=== PATIENT | female | born 1990 | race African-American/Black ===

== ENCOUNTER 2017-07-14 10:51 | Emergency (ER) | payer SELFPAY ==
[~2017-07-14] VITALS: Ht 172.7 cm; Wt 99.8 kg
[~2017-07-14 10:51] MED LIST: HYDR15SO4 PO; METR500T PO; NITR100C62 PO
[2017-07-14 11:22] VITALS: BP 118/80
[2017-07-14] MEDS ORDERED: SULF1TAB24 PO (11:52)
[2017-07-14] MEDS ORDERED: CEPH500C PO (11:52)
--- NOTE | 2017-07-14 11:52 | PHYS DOC ---
Past Medical History Past Medical History: Asthma, Hypertension Additional Past Medical Histor: SEASONAL ALLERGIES Past Surgical History: No Surgical History Alcohol Use: None Drug Use: None Adult General Chief Complaint Chief Complaint: INSECT BITE HPI HPI Patient is a 27 year old female presents the ED complaining of insect bite to face 2 days. Patient states she thinks she was bitten by an insect. No insect seen or bite felt. Patient states she woke up with a pimple to her right lower chin. States he tried to pop it. Minimal drainage. Describes pain as sharp. Rates the pain as 4 out of 10. Denies tooth pain, nausea/vomiting, fever, weakness, chest pain, shortness of breath or difficulty swallowing. Review of Systems Review of Systems Constitutional: Denies fever or chills [] Eyes: Denies change in visual acuity, redness, or eye pain [] HENT: Denies nasal congestion or sore throat [] Respiratory: Denies cough or shortness of breath [] Cardiovascular: No additional information not addressed in HPI [] GI: Denies abdominal pain, nausea, vomiting, bloody stools or diarrhea [] : Denies dysuria or hematuria [] Musculoskeletal: Denies back pain or joint pain [] Integument: Denies rash or skin lesions [] Neurologic: Denies headache, focal weakness or sensory changes [] Endocrine: Denies polyuria or polydipsia [] All other systems were reviewed and found to be within normal limits, except as documented in this note. Allergies Allergies Allergies Coded Allergies Type Severity Reaction Last Updated Verified No Known Drug Allergies 09/21/15 No Physical Exam Physical Exam Constitutional: Well developed, well nourished, no acute distress, non-toxic appearance. [] HENT: Normocephalic, atraumatic, bilateral external ears normal, oropharynx moist, no oral exudates, nose normal. [] Eyes: PERRLA, EOMI, conjunctiva normal, no discharge. [] Skin: Warm, dry, MILD ERYTHEMA SURROUNDING OPEN PIMPLE TO RIGHT CHIN. OPEN AND DRAINING. NO ABSCESS OR FLUCTUANCE.[] Neurologic: Alert and oriented X 3, normal motor function, normal sensory function, no focal deficits noted. [] Psychologic: Affect normal, judgement normal, mood normal. [] Current Patient Data Vital Signs Vital Signs Date Time Temp Pulse Resp B/P (MAP) Pulse Ox O2 Delivery O2 Flow Rate FiO2 12/9/17 11:22 98.2 75 18 99 Room Air 98.2 EKG EKG [] Radiology/Procedures Radiology/Procedures [] Course & Med Decision Making Course & Med Decision Making Pertinent Labs and Imaging studies reviewed. (See chart for details) Discussed warm compress treatment. No abscess or fluctuance. Will treat with short course of keflex and bactrim. Discussed follow-up in 3 days for re- evaluation. Discussed reasons to return to the ED. Patient understands and agrees with plan. Dragon Disclaimer Dragon Disclaimer This electronic medical record was generated, in whole or in part, using a voice recognition dictation system. Departure Departure Impression: Primary Impression: Cellulitis Disposition: 01 HOME, SELF-CARE Condition: STABLE Referrals: Lyn JACOBSON MD (PCP) Patient Instructions: Cellulitis Scripts Cephalexin (CEPHALEXIN) 500 Mg Capsule 1 CAP PO TID, #21 CAP Prov: JUAN ALBERTO SMITH 07/14/17 Sulfamethoxazole/Trimethoprim (BACTRIM DS TABLET) 1 Each Tablet 1 TAB PO BID, #14 TAB Prov: JUAN ALBERTO SMITH 07/14/17 JUAN ALBERTO SMITH Jul 14, 2017 11:52
== END 2017-07-14 12:04 | disposition home or self-care (01) ==
LOC: ER 10:51
DX: L03.211 Cellulitis of face (principal); J45.909 Unspecified asthma, uncomplicated; I10 Essential (primary) hypertension
CPT/HCPCS: 99283

== ENCOUNTER 2018-09-09 14:23 | Emergency (ER) | payer SELFPAY ==
[~2018-09-09] VITALS: Ht 172.7 cm; Wt 99.8 kg
[~2018-09-09 14:23] MED LIST changes: +CEPH500C PO; -HYDR15SO4 PO; +HYDR15SO6 PO; +SULF1TAB24 PO
[2018-09-09] MEDS ORDERED: AZITHROMYCIN 250 MG TABLET. PO ONE (15:00)
[2018-09-09] MEDS ORDERED: ONDANSETRON ODT 4 MG TAB.RAPDIS. PO ONE (15:00)
[2018-09-09] MEDS ORDERED: cefTRIAXone IM 250 MG VIAL IM ONE (15:00)
[2018-09-09] MEDS ORDERED: HYDROcodone/APAP 5/325MG 1 TAB TABLET PO ONE (15:00)
--- NOTE | 2018-09-09 15:00 | PHYS DOC ---
Past Medical History Past Medical History: Asthma, Hypertension Additional Past Medical Histor: SEASONAL ALLERGIES Past Surgical History: No Surgical History Alcohol Use: None Drug Use: None Adult General Chief Complaint Chief Complaint: PELVIC PAIN HPI HPI Patient is a 28 year old female who presents with abdominal bloating, pelvic pain that is sharp at times with walking or sex it has increased over the last month. Patient denies any dysuria. She rates her pain a 4 out of 10 and states does not radiate. Denies any vaginal discharge or bleeding. Patient does have a Mirena. Patient is asked if she has an STD concerns and she states yes and she would like to be treated. Review of Systems Review of Systems Constitutional: Denies fever or chills [] Eyes: Denies change in visual acuity, redness, or eye pain [] HENT: Denies nasal congestion or sore throat [] Respiratory: Denies cough or shortness of breath [] Cardiovascular: No additional information not addressed in HPI [] GI: Denies abdominal pain, nausea, vomiting, bloody stools or diarrhea [] : Pelvic pain. Denies dysuria or hematuria [] Musculoskeletal: Denies back pain or joint pain [] Integument: Denies rash or skin lesions [] Neurologic: Denies headache, focal weakness or sensory changes [] All other systems were reviewed and found to be within normal limits, except as documented in this note. Current Medications Current Medications Current Medications Medications (Trade) Dose Ordered Sig/[place] Start Time Stop Time Status Last Admin Dose Admin Acetaminophen/ Hydrocodone Bitart (Lortab 5/325) 1 tab 1X ONCE 09/09/18 15:00 09/09/18 15:01 DC 09/09/18 15:22 1 TAB Azithromycin (Zithromax) 1,000 mg 1X ONCE 09/09/18 15:00 09/09/18 15:01 DC 09/09/18 15:22 1,000 MG Ceftriaxone Sodium (Rocephin Im) 250 mg 1X ONCE 09/09/18 15:00 09/09/18 15:01 DC 09/09/18 15:22 250 MG Ondansetron HCl (Zofran Odt) 4 mg 1X ONCE 09/09/18 15:00 09/09/18 15:01 DC 09/09/18 15:21 4 MG Allergies Allergies Allergies Coded Allergies Type Severity Reaction Last Updated Verified No Known Drug Allergies 09/21/15 No Physical Exam Physical Exam Constitutional: Well developed, well nourished, no acute distress, non-toxic appearance. [] HENT: Normocephalic, atraumatic, bilateral external ears normal, oropharynx moist, no oral exudates, nose normal. [] Eyes: PERRLA, EOMI, conjunctiva normal, no discharge. [] Neck: Normal range of motion, no tenderness, supple, no stridor. [] Cardiovascular:Heart rate regular rhythm, no murmur [] Lungs & Thorax: Bilateral breath sounds clear to auscultation [] Abdomen: Bowel sounds normal, soft, no tenderness, no masses, no pulsatile masses. [] Skin: Warm, dry, no erythema, no rash. [] Back: No tenderness, no CVA tenderness. [] Extremities: No tenderness, no cyanosis, no clubbing, ROM intact, no edema. [] Neurologic: Alert and oriented X 3, normal motor function, normal sensory function, no focal deficits noted. [] Psychologic: Affect normal, judgement normal, mood normal. [] Current Patient Data Vital Signs Vital Signs Date Time Temp Pulse Resp B/P (MAP) Pulse Ox O2 Delivery O2 Flow Rate FiO2 09/09/18 14:30 98.4 99 18 142/89 (106) 99 Room Air 98.4 Lab Values Laboratory Tests Test 09/09/18 14:27 09/09/18 14:33 09/09/18 15:10 Urine Collection Type Unknown Urine Color Yellow Urine Clarity Hazy Urine pH 6.0 Urine Specific [place] >=1.030 Urine Protein 30 mg/dL (NEG-TRACE) Urine Glucose (UA) Negative mg/dL (NEG) Urine Ketones (Stick) Negative mg/dL (NEG) Urine Blood Trace (NEG) Urine Nitrite Negative (NEG) Urine Bilirubin Negative (NEG) Urine Urobilinogen Dipstick 0.2 mg/dL (0.2 mg/dL) Urine Leukocyte Esterase Negative (NEG) Urine RBC Occ /HPF (0-2) Urine WBC 1-4 /HPF (0-4) Urine Squamous Epithelial Cells Many /LPF Urine Bacteria Few /HPF (0-FEW) Urine Mucus Marked /LPF POC Urine HCG, Qualitative Hcg negative (Negative) White Blood Count 8.4 x10^3/uL (4.0-11.0) Red Blood Count 4.78 x10^6/uL (3.50-5.40) Hemoglobin 11.7 g/dL (12.0-15.5) L Hematocrit 36.3 % (36.0-47.0) Mean Corpuscular Volume 76 fL (79-100) L Mean Corpuscular Hemoglobin 25 pg (25-35) Mean Corpuscular Hemoglobin Concent 32 g/dL (31-37) Red Cell Distribution Width 17.9 % (11.5-14.5) H Platelet Count 257 x10^3/uL (140-400) Neutrophils (%) (Auto) 59 % (31-73) Lymphocytes (%) (Auto) 27 % (24-48) Monocytes (%) (Auto) 11 % (0-9) H Eosinophils (%) (Auto) 2 % (0-3) Basophils (%) (Auto) 1 % (0-3) Neutrophils # (Auto) 5.0 x10^3uL (1.8-7.7) Lymphocytes # (Auto) 2.3 x10^3/uL (1.0-4.8) Monocytes # (Auto) 0.9 x10^3/uL (0.0-1.1) Eosinophils # (Auto) 0.2 x10^3/uL (0.0-0.7) Basophils # (Auto) 0.1 x10^3/uL (0.0-0.2) Sodium Level 140 mmol/L (136-145) Potassium Level 4.2 mmol/L (3.5-5.1) Chloride Level 105 mmol/L (98-107) Carbon Dioxide Level 30 mmol/L (21-32) Anion Gap 5 (6-14) L Blood Urea Nitrogen 13 mg/dL (7-20) Creatinine 1.0 mg/dL (0.6-1.0) Estimated GFR (Cockcroft-Gault) 78.8 Glucose Level 110 mg/dL (70-99) H Calcium Level 9.0 mg/dL (8.5-10.1) Laboratory Tests 09/09/18 15:10 Laboratory Tests 09/09/18 15:10 Microbiology 09/09/18 Wet Prep - Final, Complete EKG EKG [] Radiology/Procedures Radiology/Procedures Pelvic US Impressions: [facility] [address] [place] [address] IMAGING REPORT Signed PATIENT: RAFIQ ONTIVEROS ACCOUNT: [id number] : 1990 LOCATION: ER AGE: 28 SEX: F EXAM STATUS: REG ER ORD. PHYSICIAN: ORQUIDEA LUNA APRN REASON: pelvic pain PROCEDURE: PELVIS W/TV Examination: Ultrasound pelvis HISTORY: History of pelvic pain COMPARISON: None available. FINDINGS: The uterus measures 10.8 x 6.4 x 5.7 cm. The endometrium measures 5 mm in thickness. The right ovary measures 2.9 x 1.8 x 2.0 cm. The left ovary measures 3.0 x 1.7 x 1.6 cm. Blood flow identified in the right and left ovaries. Linear echogenicity identified in the endometrium likely intrauterine contraceptive device in place. There is a 2 cm heterogeneous echogenicity identified in the fundus of the uterus likely fibroid. IMPRESSION: 1. Intrauterine contraceptive device is in place. 2. 2 cm fibroid identified in the fundus of the uterus Electronically signed by: Iban Valentine MD (09/09/2018 3:47 PM) [facility] DICTATED and SIGNED BY: IBAN VALENTINE MD DATE: 09/09/18 1544 Course & Med Decision Making Course & Med Decision Making Patient is a 28 year old female who presents with abdominal bloating, pelvic pain that is sharp at times with walking or sex it has increased over the last month. Patient denies any dysuria. She rates her pain a 4 out of 10 and states does not radiate. Denies any vaginal discharge, vomiting, nausea, fever, dysuria or bleeding. Patient does have a Mirena. Patient is asked if she has an STD concerns and she states yes and she would like to be treated. Abdomen is soft and nontender. Abdomen does seem slightly distended the patient is obese. Afebrile. Cultures were sent for Chlamydia and gonorrhea. Patient is treated in the ER for Chlamydia and gonorrhea. Patient states she does have a balloon maker she's been too busy to get and so she decided to come to the ER. Patient is told that she will have to follow up with her balloon maker as soon as possible for continuation of care of her fibroid. Pelvic US shows 1. Intrauterine contraceptive device is in place. 2. 2 cm fibroid identified in the fundus of the uterus. Trichomoniasis present. Patient will be treated with Metronidazole and to follow up with balloon maker. Pelvic Exam: Geological E Logger present Abdomen: Nontender External Genitalia: Normal Skin Speculum: Normal vaginal mucosa, white cervical discharge, Cervical os reddened but not friable. Bimanual: Left adnexal masses or tenderness, No CMT Dragon Disclaimer Dragon Disclaimer This electronic medical record was generated, in whole or in part, using a voice recognition dictation system. Departure Departure Impression: Primary Impression: Trichomonas infection Additional Impression: Uterine fibroid Disposition: HOME, SELF-CARE Condition: STABLE Referrals: Lyn JACOBSON MD (PCP) CHRIS MARTE Jr, MD Patient Instructions: Fibroids, [id number], Trichomoniasis Additional Instructions: Follow-up with balloon maker soon as possible. Take medication as prescribed. Tell sexual partner they've been treated for sexually transmitted disease. Scripts Metronidazole (METRONIDAZOLE) 500 Mg Tablet 1 TAB PO BID for 7 Days, #14 TAB Prov: ORQUIDEA LUNA APRN 09/09/18 Problem Qualifiers Additional Impression: Uterine fibroid Uterine leiomyoma location: unspecified location Qualified Codes: D25.9 - Leiomyoma of uterus, unspecified ORQUIDEA LUNA APRN Sep 09, 2018 15:00
[2018-09-09 15:04] LABS: BILIRUBIN,URINE NEGATIVE (NEG); COLOR,URINE YELLOW; NITRITE,URINE NEGATIVE (NEG); PROTEIN,URINE 30 mg/dL (NEG-TRACE); UROBILINOGEN,URINE 0.2 mg/dL (0.2 mg/dL)
[2018-09-09 15:12] LABS: CLARITY,URINE HAZY
[2018-09-09 15:17] LABS: SQUAMOUS EPITHELIAL CELL,UR MANY /LPF
[2018-09-09 15:18] LABS: BACTERIA,URINE FEW /HPF (0-FEW); RBC,URINE OCC /HPF (0-2)
[2018-09-09 15:28] LABS: BASO # 0.1 x10^3/uL (0.0-0.2); BASO % 1 % (0-3); EOS # 0.2 x10^3/uL (0.0-0.7); EOS % 2 % (0-3); HEMATOCRIT 36.3 % (36.0-47.0); HEMOGLOBIN 11.7 g/dL (12.0-15.5); LYMPH # 2.3 x10^3/uL (1.0-4.8); LYMPH % 27 % (24-48); MEAN CORPUSCULAR HEMOGLOBIN 25 pg (25-35); MEAN CORPUSCULAR HGB CONC 32 g/dL (31-37); MEAN CORPUSCULAR VOLUME 76 fL (79-100); MONO # 0.9 x10^3/uL (0.0-1.1); MONO % 11 % (0-9); NEUT % 59 % (31-73); PLATELET COUNT 257 x10^3/uL (140-400); RED BLOOD COUNT 4.78 x10^6/uL (3.50-5.40); RED CELL DISTRIBUTION WIDTH 17.9 % (11.5-14.5); WHITE BLOOD COUNT 8.4 x10^3/uL (4.0-11.0)
[2018-09-09 15:34] LABS: GFR 78.8; POTASSIUM 4.2 mmol/L (3.5-5.1)
--- NOTE | 2018-09-09 15:51 | RAD ---
Examination: Ultrasound pelvis HISTORY: History of pelvic pain COMPARISON: None available. FINDINGS: The uterus measures 10.8 x 6.4 x 5.7 cm. The endometrium measures 5 mm in thickness. The right ovary measures 2.9 x 1.8 x 2.0 cm. The left ovary measures 3.0 x 1.7 x 1.6 cm. Blood flow identified in the right and left ovaries. Linear echogenicity identified in the endometrium likely intrauterine contraceptive device in place. There is a 2 cm heterogeneous echogenicity identified in the fundus of the uterus likely fibroid. IMPRESSION: 1. Intrauterine contraceptive device is in place. 2. 2 cm fibroid identified in the fundus of the uterus Electronically signed by: Iban Valentine MD (09/09/2018 3:47 PM) [place] [id number]
[2018-09-09] MEDS ORDERED: METR-34 PO (16:19)
[2018-09-09 16:20] VITALS: BP 142/81
[2018-09-10 13:21] LABS: GC PROBE Negative (Negative)
== END 2018-09-09 16:35 | disposition home or self-care (01) ==
LOC: ER 14:23
DX: D25.9 Leiomyoma of uterus, unspecified (principal); A59.8 Trichomoniasis of other sites; J45.909 Unspecified asthma, uncomplicated; I10 Essential (primary) hypertension
CPT/HCPCS: 36415; 76830; 76856; 80048; 81001; 81025; 85025; 87491; 87591; 96372; 99284; J0696; Q0111; Q0144; Q0162

== ENCOUNTER → 2019-03-24 | Outpatient (CLI) | payer OTHER ==
[~2019-03-24] MED LIST changes: +CEPH-264 PO; +DICY20TA3 PO; +METR-34 PO; +ONDA4TAB12 PO; +SINCALIDE 2.27 MCG in IV NORMAL SALINE 50ML 30 ML IV ONE
--- NOTE | 2019-03-24 12:46 | RAD ---
HEPATOBILIARY SCAN WITH EJECTION FRACTION History: Intermittent abdominal pain x1 year. Procedure: Serial static images are obtained of the liver and biliary system in the frontal projection following IV administration of 5.5 mCi of Technetium 99m Choletec. After filling of the gallbladder, 2.2 mcg of sincalide were infused over 30 minutes and dynamic imaging continued over this period. The gallbladder ejection fraction was calculated. Findings: There is prompt hepatic clearance of tracer from the blood pool. There is homogeneous distribution throughout the liver. There is normal filling of the gallbladder and normal emptying into the biliary system and small bowel. The gallbladder ejection fraction measures 29% (normal gallbladder EF is 35% or greater). IMPRESSION: 1. The cystic duct and common bile duct are patent. Negative for acute cholecystitis. 2. The gallbladder ejection fraction is mildly abnormal measuring 29 %. Findings may indicate chronic cholecystitis or gallbladder dyskinesia. Electronically signed by: Silas Lora MD (03/24/2019 12:43 PM) [id number]
== END | disposition home or self-care (01) ==
LOC: NM 10:03
PROVIDERS: ATTEND Family Medicine
DX: R10.9 Unspecified abdominal pain (principal); J45.909 Unspecified asthma, uncomplicated; I10 Essential (primary) hypertension; F17.210 Nicotine dependence, cigarettes, uncomplicated
CPT/HCPCS: 78227; A9537; J2805

== ENCOUNTER 2019-03-25 15:02 | Emergency (ER) | payer OTHER ==
[~2019-03-25] VITALS: Ht 172.7 cm; Wt 104.3 kg
[~2019-03-25 15:02] MED LIST changes: -CEPH-264 PO; -DICY20TA3 PO; -ONDA4TAB12 PO; -SINCALIDE 2.27 MCG in IV NORMAL SALINE 50ML 30 ML IV ONE
--- NOTE | 2019-03-25 16:10 | PHYS DOC ---
Past Medical History Past Medical History: Asthma, Hypertension Additional Past Medical Histor: SEASONAL ALLERGIES Past Surgical History: No Surgical History Additional Information: 2-3 cigarettes daily Alcohol Use: Occasionally Drug Use: None Adult General Chief Complaint Chief Complaint: ABDOMINAL PAIN HPI HPI Patient is a 28 year old female presents with abdominal pain, nausea, vomiting this been ongoing for several months however the patient states that over the last few day her abdomen is been feeling bloated and that she is not a bowel movement since yesterday. He is also been vomiting and nauseous. He states her primary care doctor Dr. Esteves has been working her up for gallbladder and liver issues. It's her pain as 7 out of 10 in severity and sharp. Denies medicine prior to arrival. Review of Systems Review of Systems Constitutional: Denies fever or chills [] Eyes: Denies change in visual acuity, redness, or eye pain [] HENT: Denies nasal congestion or sore throat [] Respiratory: Denies cough or shortness of breath [] Cardiovascular: No additional information not addressed in HPI [] GI: Reports abdominal pain, nausea, vomiting, Denies bloody stools or diarrhea [] : Denies dysuria or hematuria [] Musculoskeletal: Denies back pain or joint pain [] Integument: Denies rash or skin lesions [] Neurologic: Denies headache, focal weakness or sensory changes [] Endocrine: Denies polyuria or polydipsia [] Complete systems were reviewed and found to be within normal limits, except as documented in this note. Current Medications Current Medications Current Medications Medications (Trade) Dose Ordered Sig/Papito Start Time Stop Time Status Last Admin Dose Admin Info (CONTRAST GIVEN -- Rx MONITORING) 1 each PRN DAILY PRN 03/25/19 16:30 03/27/19 16:29 Iohexol (Omnipaque 300 Mg/ml) 75 ml 1X ONCE 03/25/19 16:30 03/25/19 16:31 DC 03/25/19 17:19 75 ML Morphine Sulfate (Morphine Sulfate) 4 mg 1X ONCE 03/25/19 16:30 03/25/19 16:31 DC 03/25/19 16:08 4 MG Ondansetron HCl (Zofran) 4 mg 1X ONCE 03/25/19 16:30 03/25/19 16:31 DC 03/25/19 16:08 4 MG Sodium Chloride 1,000 ml @ 1,000 mls/hr 1X ONCE 03/25/19 16:30 03/25/19 17:29 DC 03/25/19 16:08 1,000 MLS/HR Allergies Allergies Allergies Coded Allergies Type Severity Reaction Last Updated Verified No Known Drug Allergies 09/21/15 No Physical Exam Physical Exam Constitutional: Well developed, well nourished, no acute distress, non-toxic appearance. [] HENT: Normocephalic, atraumatic, bilateral external ears normal, oropharynx moist, no oral exudates, nose normal. [] Eyes: PERRLA, EOMI, conjunctiva normal, no discharge. [] Neck: Normal range of motion, no tenderness, supple, no stridor. [] Cardiovascular:Heart rate regular rhythm, no murmur [] Lungs & Thorax: Bilateral breath sounds clear to auscultation [] Abdomen: Bowel sounds normal, bloated, diffuse tenderness, no masses, no pulsatile masses. [] Skin: Warm, dry, no erythema, no rash. [] Back: No tenderness, no CVA tenderness. [] Extremities: No tenderness, no cyanosis, no clubbing, ROM intact, no edema. [] Neurologic: Alert and oriented X 3, normal motor function, normal sensory function, no focal deficits noted. [] Psychologic: Affect normal, judgement normal, mood normal. [] Current Patient Data Vital Signs Vital Signs Date Time Temp Pulse Resp B/P (MAP) Pulse Ox O2 Delivery O2 Flow Rate FiO2 03/25/19 15:29 98.4 92 16 136/84 (101) 100 Room Air 98.4 Lab Values Laboratory Tests Test 03/25/19 15:40 03/25/19 15:50 White Blood Count 7.5 x10^3/uL (4.0-11.0) Red Blood Count 4.85 x10^6/uL (3.50-5.40) Hemoglobin 11.1 g/dL (12.0-15.5) L Hematocrit 35.1 % (36.0-47.0) L Mean Corpuscular Volume 73 fL (79-100) L Mean Corpuscular Hemoglobin 23 pg (25-35) L Mean Corpuscular Hemoglobin Concent 32 g/dL (31-37) Red Cell Distribution Width 18.4 % (11.5-14.5) H Platelet Count 238 x10^3/uL (140-400) Neutrophils (%) (Auto) 49 % (31-73) Lymphocytes (%) (Auto) 34 % (24-48) Monocytes (%) (Auto) 14 % (0-9) H Eosinophils (%) (Auto) 3 % (0-3) Basophils (%) (Auto) 1 % (0-3) Neutrophils # (Auto) 3.7 x10^3/uL (1.8-7.7) Lymphocytes # (Auto) 2.6 x10^3/uL (1.0-4.8) Monocytes # (Auto) 1.0 x10^3/uL (0.0-1.1) Eosinophils # (Auto) 0.2 x10^3/uL (0.0-0.7) Basophils # (Auto) 0.0 x10^3/uL (0.0-0.2) Sodium Level 139 mmol/L (136-145) Potassium Level 3.8 mmol/L (3.5-5.1) Chloride Level 103 mmol/L (98-107) Carbon Dioxide Level 28 mmol/L (21-32) Anion Gap 8 (6-14) Blood Urea Nitrogen 12 mg/dL (7-20) Creatinine 1.1 mg/dL (0.6-1.0) H Estimated GFR (Cockcroft-Gault) 70.6 BUN/Creatinine Ratio 11 (6-20) Glucose Level 93 mg/dL (70-99) Calcium Level 9.3 mg/dL (8.5-10.1) Total Bilirubin 0.1 mg/dL (0.2-1.0) L Aspartate Amino Transferase (AST) 33 U/L (15-37) Alanine Aminotransferase (ALT) 52 U/L (14-59) Alkaline Phosphatase 79 U/L (46-116) Total Protein 8.2 g/dL (6.4-8.2) Albumin 3.6 g/dL (3.4-5.0) Albumin/Globulin Ratio 0.8 (1.0-1.7) L Lipase 111 U/L (73-393) Urine Color Yellow Urine Clarity Clear Urine pH 6.5 Urine Specific [place] 1.025 Urine Protein Negative mg/dL (NEG-TRACE) Urine Glucose (UA) Negative mg/dL (NEG) Urine Ketones (Stick) Negative mg/dL (NEG) Urine Blood Negative (NEG) Urine Nitrite Negative (NEG) Urine Bilirubin Negative (NEG) Urine Urobilinogen Dipstick 0.2 mg/dL (0.2 mg/dL) Urine Leukocyte Esterase Moderate (NEG) Urine RBC 0 /HPF (0-2) Urine WBC 5-10 /HPF (0-4) Urine Squamous Epithelial Cells Mod /LPF Urine Bacteria Moderate /HPF (0-FEW) Urine Mucus Mod /LPF Urine Test Negative (NEG) Laboratory Tests 03/25/19 15:40 Laboratory Tests 03/25/19 15:40 EKG EKG [] Radiology/Procedures Radiology/Procedures [][facility] [address] [place] [address] IMAGING REPORT Signed PATIENT: RAFIQ ONTIVEROS JACCOUNT: [id number] : 1990 LOCATION: ER AGE: 28 SEX: F EXAM STATUS: REG ER ORD. PHYSICIAN: HOMA PIERSON APRN REASON: abd pain, CONSTIPATION, BLOATING, R/O SBO, R/O CIRRHOSIS PROCEDURE: CT ABD PELV W/ IV CONTRST ONLY CT scan of the abdomen and pelvis with contrast 03/25/2019 CLINICAL HISTORY: Abdominal pain. Constipation and bloating. TECHNIQUE: After the intravenous administration 75 cc of Omnipaque 300 only, contiguous, 5 mm axial sections were obtained through the abdomen and pelvis. One or more of the following individualized dose reduction techniques were utilized for this study: 1. Automated exposure control. 2. Adjustment of the mA and/or kV according to patient size. 3. Use of iterative reconstruction technique. FINDINGS: Comparison is made to an ultrasound of the abdomen dated 03/06/2019. Images through the lung bases demonstrate minimal dependent subsegmental atelectasis bilaterally. The liver parenchyma has a decreased attenuation consistent with fatty infiltration. A 7 mm rounded area of decreased attenuation is seen involving the superior aspect of the right lobe of the liver. This likely represents a hemangioma. The spleen, pancreas, adrenal glands and kidneys are within normal limits. The abdominal aorta tapers normally. The gallbladder is slightly contracted. No free fluid or free air is seen within the abdomen. There is no evidence of bowel obstruction. The appendix is well-visualized and is within normal limits. Images through the pelvis demonstrate the urinary bladder distended with urine. An IUD is seen within the expected location of the endometrial canal within the mid body of the uterus. A masslike area is seen projecting anteriorly from the uterine fundus which measures 4 cm in greatest diameter. This likely represents a fibroid. A 5.5 cm oval-shaped low-attenuation lesion is seen in the left adnexa which likely represents a left ovarian cyst. No free fluid is seen. Calcifications are seen within the pelvis consistent with phleboliths. Minimal S-shaped curvature of the thoracolumbar spine is seen. IMPRESSION: 5.5 cm probable left ovarian cyst. Electronically signed by: Mike Oropeza MD (03/25/2019 5:33 PM) [facility] DICTATED and SIGNED BY: MIKE OROPEZA MD DATE: 03/25/19 1733 Course & Med Decision Making Course & Med Decision Making Pertinent Labs and Imaging studies reviewed. (See chart for details) Will get labs, urine, and CT. Labs are unremarkable from baseline. Urine shows Leukocytes and moderate bacteria. Will treat for UTI. CT is unremarkable. Discussed with Dr. Zafar who was covering for Dr. Esteves who recommends follow up in one week. Dragon Disclaimer Dragon Disclaimer This electronic medical record was generated, in whole or in part, using a voice recognition dictation system. Departure Departure Impression: Primary Impression: Urinary tract infection Disposition: 01 HOME, SELF-CARE Condition: STABLE Referrals: Lyn ESTEVES MD (PCP) KAUSHAL OLSON MD Patient Instructions: Urinary Tract Infection Additional Instructions: Thank you for visiting [facility]. We appreciate you trusting us with your care. If any additional problems come up don't hesitate to return to visit us. Please follow up with your primary care provider so they can plan additional care if needed and know about the problem that you had. If symptoms worsen come back to the Emergency Department. Any concerning symptoms that start such as chest pain, shortness of air, weakness or numbness on one side of the body, running high fevers or any other concerning symptoms return to the ER. Please fill your medications at any pharmacy and follow the prescription instructions. You have been prescribed an antibiotic today to help fight your infection. Please take all of the antibiotic as directed. If after 48 hours the infection is not improving, please return for more care. If the infection worsens, return to ER for additional care. Please continue to follow up with Dr. Esteves. Also follow up with OB regarding 5.5 cm cyst on ovaries. Scripts Dicyclomine Hcl (DICYCLOMINE HCL) 20 Mg Tablet 20 MG PO QID for 30 Days, #120 TAB Prov: HOMA PIERSON APRN 03/25/19 Ondansetron (ONDANSETRON ODT) 4 Mg Tab.rapdis 1 TAB PO PRN Q6-8HRS PRN for NAUSEA, #16 TAB Prov: HOMA PIERSON APRN 03/25/19 Cephalexin (KEFLEX) 500 Mg Capsule 1 CAP PO BID for 7 Days, #14 CAP Prov: HOMA PIERSON APRN 03/25/19 Problem Qualifiers Primary Impression: Urinary tract infection Urinary tract infection type: acute cystitis Hematuria presence: without hematuria Qualified Codes: N30.00 - Acute cystitis without hematuria HOMA PIERSON APRN Mar 25, 2019 16:10
[2019-03-25 16:13] LABS: BASO % 1 % (0-3); EOS # 0.2 x10^3/uL (0.0-0.7); EOS % 3 % (0-3); HEMATOCRIT 35.1 % (36.0-47.0); HEMOGLOBIN 11.1 g/dL (12.0-15.5); LYMPH # 2.6 x10^3/uL (1.0-4.8); LYMPH % 34 % (24-48); MEAN CORPUSCULAR HEMOGLOBIN 23 pg (25-35); MEAN CORPUSCULAR HGB CONC 32 g/dL (31-37); MEAN CORPUSCULAR VOLUME 73 fL (79-100); MONO % 14 % (0-9); NEUT # 3.7 x10^3/uL (1.8-7.7); NEUT % 49 % (31-73); PLATELET COUNT 238 x10^3/uL (140-400); RED BLOOD COUNT 4.85 x10^6/uL (3.50-5.40); RED CELL DISTRIBUTION WIDTH 18.4 % (11.5-14.5); WHITE BLOOD COUNT 7.5 x10^3/uL (4.0-11.0)
[2019-03-25 16:15] LABS: BILIRUBIN,URINE NEGATIVE (NEG); CLARITY,URINE CLEAR; COLOR,URINE YELLOW; NITRITE,URINE NEGATIVE (NEG); PH,URINE 6.5; PROTEIN,URINE NEGATIVE (NEG-TRACE); UROBILINOGEN,URINE 0.2 mg/dL (0.2 mg/dL)
[2019-03-25 16:19] LABS: CALCIUM 9.3 mg/dL (8.5-10.1); CREATININE 1.1 mg/dL (0.6-1.0); GFR 70.6; POTASSIUM 3.8 mmol/L (3.5-5.1)
[2019-03-25 16:25] LABS: ALBUMIN 3.6 g/dL (3.4-5.0); ALBUMIN/GLOBULIN RATIO 0.8 (1.0-1.7); TOTAL BILIRUBIN 0.1 mg/dL (0.2-1.0); TOTAL PROTEIN 8.2 g/dL (6.4-8.2)
[2019-03-25 16:29] LABS: BACTERIA,URINE MODERATE /HPF (0-FEW); RBC,URINE 0 /HPF (0-2)
[2019-03-25 16:30] LABS: SQUAMOUS EPITHELIAL CELL,UR MOD /LPF
[2019-03-25] MEDS ORDERED: IV NORMAL SALINE 1000ML BAG 1,000 ML IV ONE (16:30)
[2019-03-25] MEDS ORDERED: MORPHINE SULFATE 4 MG/ML VIAL. IV ONE (16:30)
[2019-03-25] MEDS ORDERED: ONDANSETRON PF 4 MG/2 ML VIAL. IV ONE (16:30)
[2019-03-25] MEDS ORDERED: IOHEXOL 300 MG/ML 100ML VIAL. IV ONE (16:30)
[2019-03-25] MEDS ORDERED: CONTRAST GIVEN. MC PRN (16:30)
[2019-03-25 17:01] LABS: U PREG PATIENT NEGATIVE (NEG)
--- NOTE | 2019-03-25 17:35 | RAD ---
CT scan of the abdomen and pelvis with contrast 03/25/2019 CLINICAL HISTORY: Abdominal pain. Constipation and bloating. TECHNIQUE: After the intravenous administration 75 cc of Omnipaque 300 only, contiguous, 5 mm axial sections were obtained through the abdomen and pelvis. One or more of the following individualized dose reduction techniques were utilized for this study: 1. Automated exposure control. 2. Adjustment of the mA and/or kV according to patient size. 3. Use of iterative reconstruction technique. FINDINGS: Comparison is made to an ultrasound of the abdomen dated 03/06/2019. Images through the lung bases demonstrate minimal dependent subsegmental atelectasis bilaterally. The liver parenchyma has a decreased attenuation consistent with fatty infiltration. A 7 mm rounded area of decreased attenuation is seen involving the superior aspect of the right lobe of the liver. This likely represents a hemangioma. The spleen, pancreas, adrenal glands and kidneys are within normal limits. The abdominal aorta tapers normally. The gallbladder is slightly contracted. No free fluid or free air is seen within the abdomen. There is no evidence of bowel obstruction. The appendix is well-visualized and is within normal limits. Images through the pelvis demonstrate the urinary bladder distended with urine. An IUD is seen within the expected location of the endometrial canal within the mid body of the uterus. A masslike area is seen projecting anteriorly from the uterine fundus which measures 4 cm in greatest diameter. This likely represents a fibroid. A 5.5 cm oval-shaped low-attenuation lesion is seen in the left adnexa which likely represents a left ovarian cyst. No free fluid is seen. Calcifications are seen within the pelvis consistent with phleboliths. Minimal S-shaped curvature of the thoracolumbar spine is seen. IMPRESSION: 5.5 cm probable left ovarian cyst. Electronically signed by: Mike Oropeza MD (03/25/2019 5:33 PM) [facility]
[2019-03-25] MEDS ORDERED: ONDA4TAB12 PO (17:42)
[2019-03-25] MEDS ORDERED: CEPH-264 PO (17:42)
[2019-03-25] MEDS ORDERED: DICY20TA3 PO (18:26)
[2019-03-25 18:32] VITALS: BP 123/83
== END 2019-03-25 18:45 | disposition home or self-care (01) ==
LOC: ER 15:02
DX: N30.00 Acute cystitis without hematuria (principal); R11.2 Nausea with vomiting, unspecified; J45.909 Unspecified asthma, uncomplicated; I10 Essential (primary) hypertension; F17.210 Nicotine dependence, cigarettes, uncomplicated
CPT/HCPCS: 36415; 74177; 80053; 81001; 81025; 83690; 85025; 87086; 96361; 96374; 96375; 99285; J2270; J2405; J7030; Q9967

== ENCOUNTER 2019-07-23 15:01 | Emergency (ER) | payer SELFPAY ==
[~2019-07-23] VITALS: Ht 172.7 cm; Wt 99.8 kg
[~2019-07-23 15:01] MED LIST changes: +CEPH-264 PO; +DICY20TA3 PO; +ONDA4TAB12 PO; +OXYC1TAB15 PO
[2019-07-23] MEDS ORDERED: MORPHINE SULFATE 10 MG/ML VIAL. IV STA ×2 (15:29→17:31)
[2019-07-23] MEDS ORDERED: DEXAMETHASONE 4 MG TABLET PO STA (15:29)
[2019-07-23] MEDS ORDERED: ONDANSETRON PF 4 MG/2 ML VIAL. IV ONE (15:30)
[2019-07-23] MEDS ORDERED: IPRATRPIUM/ALBUTEROL 0.5/2.5MG 3 ML NEBU. NEB ONE (15:30)
[2019-07-23] MEDS ORDERED: IV NORMAL SALINE 1000ML BAG 1,000 ML IV ONE (15:30)
--- NOTE | 2019-07-23 15:39 | PHYS DOC ---
Past Medical History Past Medical History: Asthma, Hypertension Additional Past Medical Histor: SEASONAL ALLERGIES Past Surgical History: No Surgical History Alcohol Use: Occasionally Drug Use: None Adult General Chief Complaint Chief Complaint: DIZZY/LIGHT HEADED HPI HPI Patient is a 29 year old female who presents with multiple complaints. The patient states that she's had a sore throat, cough, shortness of breath, runny nose, congestion has been ongoing today. The patient also states she's been getting dizzy. The patient states that she has been having nausea, vomiting this been ongoing for 2 months. She has associated symptom of loss of appetite. She has right upper and lower quadrant abdominal pain. She states she's had multiple test at home most of which are been negative although there was one positive. She been having menstrual periods. She has a fever on arrival of 100.7F. She is tachycardic at 107. She has a blood pressure of 162/107. She also is tachypneic at 24 breaths per minute. Reports her pain level is 8 out of 10 in severity and sharp. Review of Systems Review of Systems Constitutional: Reports fever or chills [] Eyes: Denies change in visual acuity, redness, or eye pain [] HENT: Reports nasal congestion, runny nose, and sore throat [] Respiratory: Reports cough and shortness of breath [] Cardiovascular: No additional information not addressed in HPI [] GI: Reports abdominal pain, nausea, vomiting, Denies bloody stools or diarrhea [] : Denies dysuria or hematuria [] Musculoskeletal: Denies back pain or joint pain [] Integument: Denies rash or skin lesions [] Neurologic: Reports headache, Denies focal weakness or sensory changes [] Endocrine: Denies polyuria or polydipsia [] Complete systems were reviewed and found to be within normal limits, except as documented in this note. Current Medications Current Medications Current Medications Medications (Trade) Dose Ordered Sig/Papito Start Time Stop Time Status Last Admin Dose Admin Albuterol/ Ipratropium (Duoneb) 3 ml 1X ONCE 07/23/19 15:30 07/23/19 15:34 DC 07/23/19 15:48 3 ML Dexamethasone (Decadron) 10 mg 1X STAT 07/23/19 15:29 07/23/19 15:34 DC 07/23/19 15:47 10 MG Info (CONTRAST GIVEN -- Rx MONITORING) 1 each PRN DAILY PRN 07/23/19 16:15 07/25/19 16:14 Iohexol (Omnipaque 300 Mg/ml) 75 ml 1X ONCE 07/23/19 16:15 07/23/19 16:16 DC 07/23/19 16:16 75 ML Morphine Sulfate (Morphine Sulfate) 5 mg 1X STAT 07/23/19 17:31 07/23/19 17:33 DC 07/23/19 17:44 5 MG Ondansetron HCl (Zofran) 4 mg 1X ONCE 07/23/19 15:30 07/23/19 15:34 DC 07/23/19 15:48 4 MG Prochlorperazine Edisylate (Compazine) 10 mg 1X STAT 07/23/19 17:13 07/23/19 17:17 DC 07/23/19 17:27 10 MG Sodium Chloride 1,000 ml @ 1,000 mls/hr 1X STAT 07/23/19 17:13 07/23/19 18:12 DC 07/23/19 17:27 1,000 MLS/HR Allergies Allergies Allergies Coded Allergies Type Severity Reaction Last Updated Verified pineapple Allergy Severe Anaphylaxis 04/04/19 Yes Physical Exam Physical Exam Constitutional: Well developed, well nourished, no acute distress, non-toxic appearance. [] HENT: Normocephalic, atraumatic, bilateral external ears normal, bilateral tympanic membranes are erythematous, oropharynx moist, no oral exudates, nose normal. [] Eyes: PERRLA, EOMI, conjunctiva normal, no discharge. [] Neck: Normal range of motion, no tenderness, supple, no stridor. [] Cardiovascular:Heart rate regular rhythm, no murmur [] Lungs & Thorax: Bilateral breath sounds are diminished throughout. Abdomen: Bowel sounds normal, soft, Right lower quadrant and Right upper quad rant tenderness, no masses, no pulsatile masses. [] Skin: Warm, dry, no erythema, no rash. [] Back: No tenderness, no CVA tenderness. [] Extremities: No tenderness, no cyanosis, no clubbing, ROM intact, no edema. [] Neurologic: Alert and oriented X 3, normal motor function, normal sensory function, no focal deficits noted. [] Psychologic: Affect normal, judgement normal, mood normal. [] Current Patient Data Vital Signs Vital Signs Date Time Temp Pulse Resp B/P (MAP) Pulse Ox O2 Delivery O2 Flow Rate FiO2 07/23/19 15:48 100 Room Air 07/23/19 15:05 100.7 107 22 162/70 (100) 100.7 Lab Values Laboratory Tests Test 07/23/19 15:10 07/23/19 15:16 07/23/19 15:19 07/23/19 15:30 Urine Collection Type Unknown Urine Color Yellow Urine Clarity Clear Urine pH 7.5 Urine Specific [place] 1.025 Urine Protein Negative mg/dL (NEG-TRACE) Urine Glucose (UA) Negative mg/dL (NEG) Urine Ketones (Stick) Negative mg/dL (NEG) Urine Blood Large (NEG) Urine Nitrite Negative (NEG) Urine Bilirubin Negative (NEG) Urine Urobilinogen Dipstick 0.2 mg/dL (0.2 mg/dL) Urine Leukocyte Esterase Trace (NEG) Urine RBC Tntc /HPF (0-2) Urine WBC 1-4 /HPF (0-4) Urine Squamous Epithelial Cells Mod /LPF Urine Bacteria 0 /HPF (0-FEW) Urine Mucus Mod /LPF POC Urine HCG, Qualitative Hcg negative (Negative) Influenza Type A Antigen Negative (NEGATIVE) Influenza Type B Antigen Negative (NEGATIVE) White Blood Count 8.1 x10^3/uL (4.0-11.0) Red Blood Count 4.49 x10^6/uL (3.50-5.40) Hemoglobin 10.2 g/dL (12.0-15.5) L Hematocrit 32.2 % (36.0-47.0) L Mean Corpuscular Volume 72 fL (79-100) L Mean Corpuscular Hemoglobin 23 pg (25-35) L Mean Corpuscular Hemoglobin Concent 32 g/dL (31-37) Red Cell Distribution Width 17.8 % (11.5-14.5) H Platelet Count 254 x10^3/uL (140-400) Neutrophils (%) (Auto) 71 % (31-73) Lymphocytes (%) (Auto) 12 % (24-48) L Monocytes (%) (Auto) 15 % (0-9) H Eosinophils (%) (Auto) 2 % (0-3) Basophils (%) (Auto) 0 % (0-3) Neutrophils # (Auto) 5.7 x10^3/uL (1.8-7.7) Lymphocytes # (Auto) 1.0 x10^3/uL (1.0-4.8) Monocytes # (Auto) 1.2 x10^3/uL (0.0-1.1) H Eosinophils # (Auto) 0.2 x10^3/uL (0.0-0.7) Basophils # (Auto) 0.0 x10^3/uL (0.0-0.2) Platelet Estimate Adequate (ADEQUATE) Hypochromasia Mod Poikilocytosis Slight Anisocytosis Slight Microcytosis Mod Sodium Level 140 mmol/L (136-145) Potassium Level 3.8 mmol/L (3.5-5.1) Chloride Level 103 mmol/L (98-107) Carbon Dioxide Level 28 mmol/L (21-32) Anion Gap 9 (6-14) Blood Urea Nitrogen 11 mg/dL (7-20) Creatinine 0.9 mg/dL (0.6-1.0) Estimated GFR (Cockcroft-Gault) 88.4 BUN/Creatinine Ratio 12 (6-20) Glucose Level 88 mg/dL (70-99) Lactic Acid Level 0.9 mmol/L (0.4-2.0) Calcium Level 8.8 mg/dL (8.5-10.1) Magnesium Level 1.9 mg/dL (1.8-2.4) Total Bilirubin 0.1 mg/dL (0.2-1.0) L Aspartate Amino Transferase (AST) 19 U/L (15-37) Alanine Aminotransferase (ALT) 26 U/L (14-59) Alkaline Phosphatase 69 U/L (46-116) Total Protein 8.0 g/dL (6.4-8.2) Albumin 3.4 g/dL (3.4-5.0) Albumin/Globulin Ratio 0.7 (1.0-1.7) L Procalcitonin < 0.10 ng/mL (0.00-0.10) Laboratory Tests 07/23/19 15:30 Laboratory Tests 07/23/19 15:30 EKG EKG [] Radiology/Procedures Radiology/Procedures [address] [place] [address] IMAGING REPORT Signed PATIENT: RAFIQ ONTIVEROS JACCOUNT: [id number] : 1990 LOCATION: ER AGE: 29 SEX: F EXAM STATUS: REG ER ORD. PHYSICIAN: HOMA PIERSON APRN REASON: fever, abd pain PROCEDURE: CT ABD PELV W/ IV CONTRST ONLY Exam: CT abdomen and pelvis with contrast INDICATION: Fever, abdominal pain TECHNIQUE: Sequential axial images through the abdomen and pelvis obtained following the administration of 75 mL of Omni 300 IV contrast. Sagittal and coronal reformatted images were reconstructed from the axial data and reviewed. Comparisons: 04/04/2019 FINDINGS: Heart size is normal. No pericardial fusion. Visualized lung bases are clear. No pleural effusion. Liver, spleen, pancreas, and adrenals are unremarkable. Gallbladder surgically absent. Kidneys demonstrate symmetric enhancement. No perinephric inflammation or hydronephrosis. No renal or ureteral calculi are identified. Bladder is decompressed not well evaluated. Uterus is mildly enlarged and heterogenous in appearance. No abnormal adnexal mass. Large and small bowel are unremarkable. Appendix is normal. No free intra-abdominal air or fluid. No obstruction. Abdominal aorta has a normal course and caliber. Abdominal vasculature is patent. No enlarged abdominal lymph nodes are identified. No suspicious osseous lesions or acute fractures. IMPRESSION: No acute process identified within the abdomen or pelvis. Exposure: One or more of the following in the visualized dose reduction techniques were utilized for this examination: 1. Automated exposure control 2. Adjustment of the MA and/or KV according to patient size 3. Use of iterative of reconstructive technique Electronically signed by: Jaz Ferrer MD (07/23/2019 4:29 PM) [facility] DICTATED and SIGNED BY: JAZ FERRER MD DATE: 07/23/19 2970 [][facility] [address] [place], [place] [id number] IMAGING REPORT Signed PATIENT: RAFIQ ONTIVEROS JACCOUNT: [id number] : 1990 LOCATION: ER AGE: 29 SEX: F EXAM STATUS: REG ER ORD. PHYSICIAN: HOMA PIERSON APRN REASON: shortness of breath, fever UCG first PROCEDURE: PORTABLE CHEST 1V PORTABLE CHEST 1V Clinical indications: Shortness of breath. Fever. COMPARISON: None available. Findings: No acute lung infiltrate or pleural effusion or pulmonary edema or lung mass or pneumothorax is seen. Heart size is mildly prominent some of which is due to AP magnification. The pulmonary vasculature, mediastinum and both jair are unremarkable. Impression: No acute lung infiltrate. Mildly prominent heart size. Electronically signed by: Terell Alonso MD (07/23/2019 4:42 PM) [facility] DICTATED and SIGNED BY: TERELL ALONSO MD DATE: 07/23/19 1640 Course & Med Decision Making Course & Med Decision Making Pertinent Labs and Imaging studies reviewed. (See chart for details) Will get Strep and Flu test. Will get labs, breathing treatment, chest x-ray, CT scan, urine, test, and supportive care. Urine is negative. Imaging is unremarkable. Labs are unremarkable, Hemoglobin 10.2 but at baseline. Urine shows leukocytes (trace) and blood but no bacteria. Ultrasound shows uterine fibroids. Dragon Disclaimer Dragon Disclaimer This electronic medical record was generated, in whole or in part, using a voice recognition dictation system. Departure Departure Impression: Primary Impression: Uterine fibroid Additional Impression: Viral syndrome Disposition: 01 HOME, SELF-CARE Condition: STABLE Referrals: Lyn JACOBSON MD (PCP) CHRIS MARTE Jr, MD Patient Instructions: Viral Syndrome Additional Instructions: Thank you for visiting [facility]. We appreciate you trusting us with your care. If any additional problems come up don't hesitate to return to visit us. Please follow up with your primary care provider so they can plan additional care if needed and know about the problem that you had. If symptoms worsen come back to the Emergency Department. Any concerning symptoms that start such as chest pain, shortness of air, weakness or numbness on one side of the body, running high fevers or any other concerning symptoms return to the ER. Please fill your medications at any pharmacy and follow the prescription instructions. Scripts Ondansetron (ONDANSETRON ODT) 4 Mg Tab.rapdis 1 TAB PO PRN Q6-8HRS PRN for NAUSEA, #16 TAB Prov: HOMA PIERSON APRN 07/23/19 Problem Qualifiers Primary Impression: Uterine fibroid Uterine leiomyoma location: unspecified location Qualified Codes: D25.9 - Leiomyoma of uterus, unspecified HOMA PIERSON APRN Jul 23, 2019 15:39
[2019-07-23 15:55] LABS: BASO % 0 % (0-3); EOS # 0.2 x10^3/uL (0.0-0.7); EOS % 2 % (0-3); HEMATOCRIT 32.2 % (36.0-47.0); HEMOGLOBIN 10.2 g/dL (12.0-15.5); LYMPH % 12 % (24-48); MEAN CORPUSCULAR HEMOGLOBIN 23 pg (25-35); MEAN CORPUSCULAR HGB CONC 32 g/dL (31-37); MEAN CORPUSCULAR VOLUME 72 fL (79-100); MONO # 1.2 x10^3/uL (0.0-1.1); MONO % 15 % (0-9); NEUT # 5.7 x10^3/uL (1.8-7.7); NEUT % 71 % (31-73); PLATELET COUNT 254 x10^3/uL (140-400); RED BLOOD COUNT 4.49 x10^6/uL (3.50-5.40); RED CELL DISTRIBUTION WIDTH 17.8 % (11.5-14.5); WHITE BLOOD COUNT 8.1 x10^3/uL (4.0-11.0)
[2019-07-23 15:58] LABS: INFLUENZA A PATIENT NEGATIVE (NEGATIVE); INFLUENZA B PATIENT NEGATIVE (NEGATIVE)
[2019-07-23 16:02] LABS: CALCIUM 8.8 mg/dL (8.5-10.1); CREATININE 0.9 mg/dL (0.6-1.0); GFR 88.4; POTASSIUM 3.8 mmol/L (3.5-5.1)
[2019-07-23 16:08] LABS: ALBUMIN 3.4 g/dL (3.4-5.0); ALBUMIN/GLOBULIN RATIO 0.7 (1.0-1.7); MAGNESIUM 1.9 mg/dL (1.8-2.4); TOTAL BILIRUBIN 0.1 mg/dL (0.2-1.0)
[2019-07-23 16:09] LABS: BILIRUBIN,URINE NEGATIVE (NEG); CLARITY,URINE CLEAR; COLOR,URINE YELLOW; NITRITE,URINE NEGATIVE (NEG); PH,URINE 7.5; PROTEIN,URINE NEGATIVE (NEG-TRACE); UROBILINOGEN,URINE 0.2 mg/dL (0.2 mg/dL)
[2019-07-23] MEDS ORDERED: CONTRAST GIVEN. MC PRN (16:15)
[2019-07-23] MEDS ORDERED: IOHEXOL 300 MG/ML 100ML VIAL. IV ONE (16:15)
[2019-07-23 16:26] LABS: BACTERIA,URINE 0 /HPF (0-FEW); RBC,URINE TNTC /HPF (0-2); SQUAMOUS EPITHELIAL CELL,UR MOD /LPF
--- NOTE | 2019-07-23 16:32 | RAD ---
Exam: CT abdomen and pelvis with contrast INDICATION: Fever, abdominal pain TECHNIQUE: Sequential axial images through the abdomen and pelvis obtained following the administration of 75 mL of Omni 300 IV contrast. Sagittal and coronal reformatted images were reconstructed from the axial data and reviewed. Comparisons: 04/04/2019 FINDINGS: Heart size is normal. No pericardial fusion. Visualized lung bases are clear. No pleural effusion. Liver, spleen, pancreas, and adrenals are unremarkable. Gallbladder surgically absent. Kidneys demonstrate symmetric enhancement. No perinephric inflammation or hydronephrosis. No renal or ureteral calculi are identified. Bladder is decompressed not well evaluated. Uterus is mildly enlarged and heterogenous in appearance. No abnormal adnexal mass. Large and small bowel are unremarkable. Appendix is normal. No free intra-abdominal air or fluid. No obstruction. Abdominal aorta has a normal course and caliber. Abdominal vasculature is patent. No enlarged abdominal lymph nodes are identified. No suspicious osseous lesions or acute fractures. IMPRESSION: No acute process identified within the abdomen or pelvis. Exposure: One or more of the following in the visualized dose reduction techniques were utilized for this examination: 1. Automated exposure control 2. Adjustment of the MA and/or KV according to patient size 3. Use of iterative of reconstructive technique Electronically signed by: Jaz Bah MD (07/23/2019 4:29 PM) [facility]
--- NOTE | 2019-07-23 16:45 | RAD ---
PORTABLE CHEST 1V Clinical indications: Shortness of breath. Fever. COMPARISON: None available. Findings: No acute lung infiltrate or pleural effusion or pulmonary edema or lung mass or pneumothorax is seen. Heart size is mildly prominent some of which is due to AP magnification. The pulmonary vasculature, mediastinum and both jair are unremarkable. Impression: No acute lung infiltrate. Mildly prominent heart size. Electronically signed by: Chao Alonso MD (07/23/2019 4:42 PM) [facility]
[2019-07-23 16:54] LABS: PLT ESTIMATE ADEQUATE (ADEQUATE)
[2019-07-23 16:55] LABS: ANISOCYTOSIS SLIGHT; HYPOCHROMIA MOD; MICROCYTOSIS MOD; POIKILOCYTOSIS SLIGHT
[2019-07-23] MEDS ORDERED: PROCHLORPERAZINE 10 MG/2 ML VIAL. IV STA (17:13)
[2019-07-23] MEDS ORDERED: IV NORMAL SALINE 1000ML BAG 1,000 ML IV STA (17:13)
[2019-07-23 18:00] VITALS: BP 119/72
[2019-07-23] MEDS ORDERED: ONDA4TAB12 PO (18:30)
--- NOTE | 2019-07-23 18:44 | RAD ---
Exam: Ultrasound pelvis Indication: Right lower quadrant pain, fever Technique: Real-time grayscale and color Doppler images of the pelvis were obtained by the department media professional. Comparisons: CT same day FINDINGS: Uterus measures 11.5 x 7.6 x 5.4 cm. Endometrium is 7 mm in thickness. Fibroid at uterine fundus measuring up to 3.4 cm. Right ovary measures 3.4 x 3.3 x 2.1 cm. Left ovary measures 2.7 x 3.7 x 1.4 cm. Arterial flow is noted within the ovaries bilaterally. No free fluid. IMPRESSION: 1. Fibroid uterus. 2. Normal sonographic appearance of the ovaries. Electronically signed by: Jaz Bah MD (07/23/2019 6:41 PM) [facility]
== END 2019-07-23 18:44 | disposition home or self-care (01) ==
LOC: ER 15:01
DX: D25.9 Leiomyoma of uterus, unspecified (principal); B34.9 Viral infection, unspecified; R42 Dizziness and giddiness; J45.909 Unspecified asthma, uncomplicated; I10 Essential (primary) hypertension; Z91.018 Allergy to other foods
CPT/HCPCS: 36415; 71045; 74177; 76830; 76856; 80053; 81001; 81025; 83605; 83735; 84145; 85025; 87040; 87070; 87086; 87804; 87880; 94640; 96361; 96374; 96375; 96376; 99285; J0780; J2270; J2405; J7030; J7620; J8540; Q9967

== ENCOUNTER 2019-12-31 14:53 | Emergency (ER) | payer SELFPAY ==
[~2019-12-31] VITALS: Ht 172.7 cm; Wt 105.0 kg
[2019-12-31] MEDS ORDERED: ONDANSETRON PF 4 MG/2 ML VIAL. IVP ONE (15:30)
[2019-12-31] MEDS ORDERED: MORPHINE SULFATE 4 MG/ML VIAL. IV ONE (15:30)
[2019-12-31 15:36] LABS: BASO # 0.1 x10^3/uL (0.0-0.2); BASO % 1 % (0-3); EOS # 0.2 x10^3/uL (0.0-0.7); EOS % 2 % (0-3); HEMOGLOBIN 9.4 g/dL (12.0-15.5); LYMPH # 2.5 x10^3/uL (1.0-4.8); LYMPH % 33 % (24-48); MEAN CORPUSCULAR HEMOGLOBIN 22 pg (25-35); MEAN CORPUSCULAR HGB CONC 31 g/dL (31-37); MEAN CORPUSCULAR VOLUME 69 fL (79-100); MONO # 0.9 x10^3/uL (0.0-1.1); MONO % 12 % (0-9); NEUT # 3.9 x10^3/uL (1.8-7.7); NEUT % 52 % (31-73); PLATELET COUNT 270 x10^3/uL (140-400); RED BLOOD COUNT 4.36 x10^6/uL (3.50-5.40); WHITE BLOOD COUNT 7.5 x10^3/uL (4.0-11.0)
[2019-12-31 15:39] LABS: BILIRUBIN,URINE NEGATIVE (NEG); CLARITY,URINE CLOUDY; COLOR,URINE YELLOW; NITRITE,URINE NEGATIVE (NEG); PROTEIN,URINE NEGATIVE (NEG-TRACE); UROBILINOGEN,URINE 0.2 mg/dL (0.2 mg/dL)
[2019-12-31 15:44] LABS: BARBITURATES NEG (NEG); BENZODIAZEPINES NEG (NEG); CANNABINOIDS NEG (NEG); COCAINE POS (NEG); METHADONE NEG (NEG); OPIATES NEG (NEG); PHENCYCLIDINE NEG (NEG)
[2019-12-31 15:49] LABS: AMPHETAMINE/METHAMPHETAMINE NEG (NEG)
[2019-12-31 15:50] LABS: BACTERIA,URINE 0 /HPF (0-FEW); RBC,URINE 0 /HPF (0-2); SQUAMOUS EPITHELIAL CELL,UR MANY /LPF; WBC,URINE RARE /HPF (0-4)
[2019-12-31 15:55] LABS: CALCIUM 8.2 mg/dL (8.5-10.1); CREATININE 0.9 mg/dL (0.6-1.0); GFR 88.4; POTASSIUM 4.5 mmol/L (3.5-5.1)
[2019-12-31 16:01] LABS: ALBUMIN/GLOBULIN RATIO 0.7 (1.0-1.7); TOTAL BILIRUBIN 0.2 mg/dL (0.2-1.0); TOTAL PROTEIN 7.6 g/dL (6.4-8.2)
[2019-12-31 16:06] LABS: PLT ESTIMATE ADEQUATE (ADEQUATE)
[2019-12-31 16:07] LABS: ANISOCYTOSIS SLIGHT; HYPOCHROMIA SLIGHT; MICROCYTOSIS MOD
[2019-12-31 16:08] LABS: POIKILOCYTOSIS SLIGHT; SCHISTOCYTES OCC
[2019-12-31 16:09] LABS: OVALOCYTES OCC
--- NOTE | 2019-12-31 16:16 | RAD ---
CT Abdomen and Pelvis without contrast History: Left flank pain Technique: Noncontrast CT imaging was performed of the abdomen and pelvis. Multiplanar images are reviewed. Exposure: One or more of the following individualized dose reduction techniques were utilized for this examination: 1. Automated exposure control 2. Adjustment of the mA and/or kV according to patient size 3. Use of iterative reconstruction technique. Comparison: July 23, 2019 Findings: There is no hydronephrosis or renal calculus. There is a small 1 to 2 mm calcification the left pelvis image 184 series 2 probably at the level of the left ureterovesical junction not clearly seen on previous exam. There are some other phleboliths in the pelvis as seen previously. There is again heterogeneity and enlargement of the uterus, likely uterine mass. There is no free fluid or free air. Bowel is not significantly dilated. Normal caliber appendix is visualized. There has been cholecystectomy. No new obvious abnormality is identified of the liver, spleen, or pancreas allowing for noncontrast technique. Very superior aspect of the dome of the liver is not included on this exam. There is no abnormality of the visualized lung bases. Impression: 1. There is no significant hydronephrosis. There is a small calcification in the left pelvis probably at the left ureterovesical junction, distal ureters difficult to define on this exam. 2. There is again enlargement and heterogeneity of the uterus with probable underlying mass more commonly due to fibroids. Electronically signed by: Carlos Najera MD (12/31/2019 4:13 PM) [id number]
[2019-12-31 16:52] VITALS: BP 104/65
--- NOTE | 2019-12-31 16:52 | PHYS DOC ---
Past Medical History Past Medical History: Asthma, Hypertension Additional Past Medical Histor: SEASONAL ALLERGIES Past Surgical History: Cholecystectomy Smoking Status: Never Smoker Alcohol Use: None Drug Use: None General Adult EDM: Chief Complaint: PELVIC PAIN HPI: HPI: Patient is a 29 year old female with history of hypertension, uterine fibroids, asthma, who presents to the ED today complaining of 9 out of 10 sharp intermittent left upper quadrant abdominal pain radiating to the left lower quadrant that began couple minutes prior to coming to the ED. Patient also reports trace amount of blood when she wiped herself during urination. Patient also reports subjective fever. She is very restless and had to evaluate. She is demanding pain medicine. She came by EMS and was given fentanyl 50 mcg with no relief. Review of Systems: Review of Systems: Constitutional: Reports fever Eyes: Denies change in visual acuity. [] HENT: Denies nasal congestion or sore throat. [] Respiratory: Denies cough or shortness of breath. [] Cardiovascular: Denies chest pain or edema. [] GI: Reports left upper quadrant abdominal pain radiating to the left lower quadrant, denies nausea, vomiting, bloody stools or diarrhea. [] : Reports blood when she wiped herself. Denies dysuria. [] Musculoskeletal: Denies back pain or joint pain. [] Integument: Denies rash. [] Neurologic: Denies headache, focal weakness or sensory changes. [] Psychiatric: Denies depression or anxiety. [] Heart Score: Risk Factors: Risk Factors: DM, Current or recent (<one month) smoker, HTN, HLP, family history of CAD, obesity. Risk Scores: Score 0 - 3: 2.5% MACE over next 6 weeks - Discharge Home Score 4 - 6: 20.3% MACE over next 6 weeks - Admit for Clinical Observation Score 7 - 10: 72.7% MACE over next 6 weeks - Early Invasive Strategies Current Medications: Current Medications Medications (Trade) Dose Ordered Sig/[facility] Start Time Stop Time Status Last Admin Dose Admin Morphine Sulfate (Morphine Sulfate) 4 mg 1X ONCE 12/31/19 15:30 12/31/19 15:31 DC 12/31/19 15:37 4 MG Ondansetron HCl (Zofran) 4 mg 1X ONCE 12/31/19 15:30 12/31/19 15:31 DC 12/31/19 15:37 4 MG Allergies: Allergies: Allergies Coded Allergies Type Severity Reaction Last Updated Verified pineapple Allergy Severe Anaphylaxis 04/04/19 Yes Physical Exam: PE: Constitutional: Well developed, well nourished, no acute distress, non-toxic appearance. [] HENT: Normocephalic, atraumatic, bilateral external ears normal, oropharynx moist, no oral exudates, nose normal. [] Eyes: PERRLA, EOMI, conjunctiva normal, no discharge. [] Neck: Normal range of motion, no tenderness, supple, no stridor. [] Cardiovascular:Heart rate regular rhythm, no murmur [] Lungs & Thorax: Bilateral breath sounds clear to auscultation [] Abdomen: Bowel sounds normal, soft, no tenderness, no masses, no pulsatile masses. [] Pelvic exam-deferred patient restless Skin: Warm, dry, no erythema, no rash. [] Back: No tenderness, no CVA tenderness. [] Extremities: No tenderness, no cyanosis, no clubbing, ROM intact, no edema. [] Neurologic: Alert and oriented X 3, normal motor function, normal sensory function, no focal deficits noted. [] Psychologic: Affect normal, judgement normal, mood normal. [] Current Patient Data: Labs: Laboratory Tests Test 12/31/19 15:05 12/31/19 15:08 12/31/19 15:23 Urine Collection Type Unknown Urine Color Yellow Urine Clarity Cloudy Urine pH 6.0 (<5.0-8.0) Urine Specific [place] >=1.030 (1.000-1.030) Urine Protein Negative mg/dL (NEG-TRACE) Urine Glucose (UA) Negative mg/dL (NEG) Urine Ketones (Stick) Negative mg/dL (NEG) Urine Blood Negative (NEG) Urine Nitrite Negative (NEG) Urine Bilirubin Negative (NEG) Urine Urobilinogen Dipstick 0.2 mg/dL (0.2 mg/dL) Urine Leukocyte Esterase Negative (NEG) Urine RBC 0 /HPF (0-2) Urine WBC Rare /HPF (0-4) Urine Squamous Epithelial Cells Many /LPF Urine Bacteria 0 /HPF (0-FEW) Urine Mucus Marked /LPF Urine Opiates Screen Neg (NEG) Urine Methadone Screen Neg (NEG) Urine Barbiturates Neg (NEG) Urine Phencyclidine Screen Neg (NEG) Urine Amphetamine/Methamphetamine Neg (NEG) Urine Benzodiazepines Screen Neg (NEG) Urine Cocaine Screen Pos (NEG) Urine Cannabinoids Screen Neg (NEG) Urine Ethyl Alcohol Neg (NEG) POC Urine HCG, Qualitative Hcg negative (Negative) White Blood Count 7.5 x10^3/uL (4.0-11.0) Red Blood Count 4.36 x10^6/uL (3.50-5.40) Hemoglobin 9.4 g/dL (12.0-15.5) L Hematocrit 30.0 % (36.0-47.0) L Mean Corpuscular Volume 69 fL (79-100) L Mean Corpuscular Hemoglobin 22 pg (25-35) L Mean Corpuscular Hemoglobin Concent 31 g/dL (31-37) Red Cell Distribution Width 18.0 % (11.5-14.5) H Platelet Count 270 x10^3/uL (140-400) Neutrophils (%) (Auto) 52 % (31-73) Lymphocytes (%) (Auto) 33 % (24-48) Monocytes (%) (Auto) 12 % (0-9) H Eosinophils (%) (Auto) 2 % (0-3) Basophils (%) (Auto) 1 % (0-3) Neutrophils # (Auto) 3.9 x10^3/uL (1.8-7.7) Lymphocytes # (Auto) 2.5 x10^3/uL (1.0-4.8) Monocytes # (Auto) 0.9 x10^3/uL (0.0-1.1) Eosinophils # (Auto) 0.2 x10^3/uL (0.0-0.7) Basophils # (Auto) 0.1 x10^3/uL (0.0-0.2) Platelet Estimate Adequate (ADEQUATE) Large Platelets Occ Polychromasia Hypochromasia Slight Poikilocytosis Slight Anisocytosis Slight Microcytosis Mod Ovalocytes Occ Schistocytes Occ Sodium Level 140 mmol/L (136-145) Potassium Level 4.5 mmol/L (3.5-5.1) Chloride Level 104 mmol/L (98-107) Carbon Dioxide Level 25 mmol/L (21-32) Anion Gap 11 (6-14) Blood Urea Nitrogen 15 mg/dL (7-20) Creatinine 0.9 mg/dL (0.6-1.0) Estimated GFR (Cockcroft-Gault) 88.4 BUN/Creatinine Ratio 17 (6-20) Glucose Level 119 mg/dL (70-99) H Calcium Level 8.2 mg/dL (8.5-10.1) L Total Bilirubin 0.2 mg/dL (0.2-1.0) Aspartate Amino Transferase (AST) 37 U/L (15-37) Alanine Aminotransferase (ALT) 44 U/L (14-59) Alkaline Phosphatase 63 U/L (46-116) Total Protein 7.6 g/dL (6.4-8.2) Albumin 3.0 g/dL (3.4-5.0) L Albumin/Globulin Ratio 0.7 (1.0-1.7) L Lipase 87 U/L (73-393) Ethyl Alcohol Level < 10 mg/dL (0-10) Laboratory Tests 12/31/19 15:23 Laboratory Tests 12/31/19 15:23 Vital Signs: Vital Signs Date Time Temp Pulse Resp B/P (MAP) Pulse Ox O2 Delivery O2 Flow Rate FiO2 12/31/19 15:37 18 100 Room Air 12/31/19 14:57 98.5 83 157/97 (117) 98.5 EKG: EKG: [] Radiology/Procedures: Radiology/Procedures: []PROCEDURE: CT ABDOMEN PELVIS WO CONTRAST CT Abdomen and Pelvis without contrast History: Left flank pain Technique: Noncontrast CT imaging was performed of the abdomen and pelvis. Multiplanar images are reviewed. Exposure: One or more of the following individualized dose reduction techniques were utilized for this examination: 1. Automated exposure control 2. Adjustment of the mA and/or kV according to patient size 3. Use of iterative reconstruction technique. Comparison: July 23, 2019 Findings: There is no hydronephrosis or renal calculus. There is a small 1 to 2 mm calcification the left pelvis image 184 series 2 probably at the level of the left ureterovesical junction not clearly seen on previous exam. There are some other phleboliths in the pelvis as seen previously. There is again heterogeneity and enlargement of the uterus, likely uterine mass. There is no free fluid or free air. Bowel is not significantly dilated. Normal caliber appendix is visualized. There has been cholecystectomy. No new obvious abnormality is identified of the liver, spleen, or pancreas allowing for noncontrast technique. Very superior aspect of the dome of the liver is not included on this exam. There is no abnormality of the visualized lung bases. Impression: 1. There is no significant hydronephrosis. There is a small calcification in the left pelvis probably at the left ureterovesical junction, distal ureters difficult to define on this exam. 2. There is again enlargement and heterogeneity of the uterus with probable underlying mass more commonly due to fibroids. Electronically signed by: Dora Ivy MD (12/31/2019 4:13 PM) [id number] DICTATED and SIGNED BY: DORA IVY MD DATE: 12/31/19 1613 Course & Med Decision Making: Course & Med Decision Making Pertinent Labs and Imaging studies reviewed. (See chart for details) This is a 29-year-old female patient presenting to the ED today complaining of left upper quadrant abdominal pain radiating to the left lower quadrant, subjective fevers, some blood when she wiped herself post voiding, symptoms began a couple minutes prior to coming to the ED. Patient is restless, thrashing around in bed. Very hard to examine. Demanding pain medicine. Labs are negative for any acute findings, CT of the abdomen and pelvic noted for fibroids which patient is aware of and has no ORE SAMPLER. Patient was also noted for a small calcified lesion in her left pelvis at the UVJ distal. UA with no blood no infection. UDS noted for coccaine. Patient was discharged home. Provided ORE SAMPLER for follow-up. Provided return precautions and discharged in stable condition. Anabella Disclaimer: Anabella Disclaimer: This electronic medical record was generated, in whole or in part, using a voice recognition dictation system. Departure Departure Impression: Primary Impression: Cocaine use Additional Impressions: Abdominal pain Qualified Codes: R10.12 - Left upper quadrant pain Fibroids Disposition: 01 HOME, SELF-CARE Condition: STABLE Referrals: Lyn JACOBSON MD (PCP) CHRIS AMRTE Jr, MD follow up in 1 week Patient Instructions: Abdominal Pain, Fibroids, [id number] Additional Instructions: You were evaluated in the emergency room. You were noted to have fibroids, they need to be followed up by your ORE SAMPLER or the provided ORE SAMPLER. JAQUELINE SAVAGE WASHER [employer]ASS December 31, 2019 16:52
[2019-12-31] MEDS ORDERED: KETOROLAC 30 MG/ML VIAL. ONE (16:57)
[2019-12-31] MEDS ORDERED: KETOROLAC 30 MG/ML VIAL. IVP ONE (17:00)
== END 2019-12-31 16:55 | disposition home or self-care (01) ==
LOC: ER 14:53
DX: D25.9 Leiomyoma of uterus, unspecified (principal); F14.90 Cocaine use, unspecified, uncomplicated; J45.909 Unspecified asthma, uncomplicated; I10 Essential (primary) hypertension; Z91.018 Allergy to other foods
CPT/HCPCS: 36415; 74176; 80053; 80307; 81001; 81025; 83690; 85025; 96374; 96375; 99285; G0480; J1885; J2270; J2405

== ENCOUNTER 2021-07-24 03:20 | Emergency (ER) | payer SELFPAY ==
[~2021-07-24] VITALS: Ht 172.7 cm; Wt 100.0 kg
[~2021-07-24 03:20] MED LIST changes: +DICY20TA PO; -DICY20TA3 PO
[2021-07-24 03:57] LABS: BASO # 0.1 x10^3/uL (0.0-0.2); BASO % 1 % (0-3); EOS # 0.1 x10^3/uL (0.0-0.7); EOS % 1 % (0-3); HEMOGLOBIN 13.1 g/dL (12.0-15.5); LYMPH # 2.8 x10^3/uL (1.0-4.8); LYMPH % 22 % (24-48); MEAN CORPUSCULAR HEMOGLOBIN 27 pg (25-35); MEAN CORPUSCULAR HGB CONC 33 g/dL (31-37); MEAN CORPUSCULAR VOLUME 81 fL (79-100); MONO # 1.3 x10^3/uL (0.0-1.1); MONO % 10 % (0-9); NEUT # 8.8 x10^3/uL (1.8-7.7); NEUT % 67 % (31-73); PLATELET COUNT 256 x10^3/uL (140-400); RED BLOOD COUNT 4.96 x10^6/uL (3.50-5.40); RED CELL DISTRIBUTION WIDTH 16.4 % (11.5-14.5); WHITE BLOOD COUNT 13.2 x10^3/uL (4.0-11.0)
[2021-07-24] MEDS ORDERED: IV NORMAL SALINE 1000ML BAG 1,000 ML IV ONE (04:00)
[2021-07-24] MEDS ORDERED: KETOROLAC 30 MG/ML VIAL. IVP ONE (04:00)
[2021-07-24] MEDS ORDERED: FAMOTIDINE 20 MG/2 ML VIAL IVP ONE (04:00)
[2021-07-24 04:03] LABS: BILIRUBIN,URINE NEGATIVE (NEG); CLARITY,URINE TURBID; COLOR,URINE YELLOW; NITRITE,URINE POSITIVE (NEG); PROTEIN,URINE >=300 mg/dL (NEG-TRACE); UROBILINOGEN,URINE 0.2 mg/dL (0.2 mg/dL)
[2021-07-24 04:10] LABS: CREATININE 1.1 mg/dL (0.6-1.0); GFR 69.2
[2021-07-24 04:19] LABS: BACTERIA,URINE MANY /HPF (0-FEW); RBC,URINE OCC /HPF (0-2); TRICHOMONAS,URINE PRESENT; WBC,URINE TNTC /HPF (0-4)
[2021-07-24 04:21] LABS: BARBITURATES NEG (NEG); BENZODIAZEPINES NEG (NEG); CANNABINOIDS NEG (NEG); COCAINE POS (NEG); METHADONE NEG (NEG); OPIATES NEG (NEG); PHENCYCLIDINE NEG (NEG)
[2021-07-24 04:22] LABS: U PREG PATIENT NEGATIVE (NEG)
[2021-07-24 04:22] LABS: ALBUMIN 3.4 g/dL (3.4-5.0); ALBUMIN/GLOBULIN RATIO 0.7 (1.0-1.7); MAGNESIUM 2.1 mg/dL (1.8-2.4); TOTAL BILIRUBIN 0.3 mg/dL (0.2-1.0); TOTAL PROTEIN 8.4 g/dL (6.4-8.2)
[2021-07-24 04:23] LABS: AMPHETAMINE/METHAMPHETAMINE NEG (NEG)
--- NOTE | 2021-07-24 04:26 | RAD ---
EXAM: CHEST ONE VIEW. HISTORY: Cough, chest pain. COMPARISON: 07/23/2019. FINDINGS: A frontal view of the chest is obtained. There are no confluent infiltrates. There is no pneumothorax or pleural effusion. The heart is not en larged. IMPRESSION: 1. No confluent infiltrates. Electronically signed by: Ta Sanderson MD (07/24/2021 4:24 AM) [facility]
[2021-07-24 04:27] LABS: CREATINE KINASE 125 U/L (26-192)
--- NOTE | 2021-07-24 04:44 | PHYS DOC ---
Past Medical History Past Medical History: Asthma, Hypertension Additional Past Medical Histor: SEASONAL ALLERGIES Past Surgical History: Cholecystectomy Smoking Status: Current Every Day Smoker Alcohol Use: Occasionally Drug Use: None General Adult EDM: Chief Complaint: LOWER BACK PAIN OR INJURY HPI: HPI: Patient is a 31 y/o F presenting to the ED with complaints of Back Pain that started on Sunday evening at 5 PM after eating at [employer]. Patient says that the pain is severe and constant and that laying down makes it worse. Nothing has helped relieve the pain but hot packs do seem to help. She describes the pain as located "where you get an epidural" and says "it is up there with child as a 05/15". Patient also says that the pain has been waking her up, and that taking ibuprofen OTC hasn't helped at all. Review of Systems: Review of Systems: Constitutional: Denies fever or chills Eyes: Denies redness or eye pain HENT: Denies nasal congestion or sore throat Respiratory: Denies cough or shortness of breath Cardiovascular: Endorses chest pain; denies palpitations GI: Reports abdominal pain; denies vomiting : Denies dysuria or hematuria Integument: Denies rash or skin lesions Neurologic: Denies headache, focal weakness or sensory changes Complete systems were reviewed and found to be within normal limits, except as documented in this note. Heart Score: C/O Chest Pain: N/A Current Medications: Current Medications Medications (Trade) Dose Ordered Sig/[place] Start Time Stop Time Status Last Admin Dose Admin Ceftriaxone Sodium (Rocephin) 1 gm 1X ONCE 07/24/21 05:00 07/24/21 05:01 Famotidine (Pepcid Vial) 20 mg 1X ONCE 07/24/21 04:00 07/24/21 04:01 DC 07/24/21 03:56 20 MG Ketorolac Tromethamine (Toradol 30mg Vial) 15 mg 1X ONCE 07/24/21 04:00 07/24/21 04:01 DC 07/24/21 03:56 15 MG Sodium Chloride 1,000 ml @ 1,000 mls/hr 1X ONCE 07/24/21 04:00 07/24/21 04:59 07/24/21 03:51 1,000 MLS/HR Allergies: Allergies: Allergies Coded Allergies Type Severity Reaction Last Updated Verified pineapple Allergy Severe Anaphylaxis 04/04/19 Yes Physical Exam: PE: Constitutional: Well developed, well nourished, uncomfortable, non-toxic appearance HENT: Normocephalic, atraumatic Eyes Conjunctiva normal, no discharge Neck: Normal range of motion, no tenderness, supple Lungs & Thorax: No respiratory distress, equal chest rise and fall Abdomen: Soft, no tenderness Skin: Warm, dry, no erythema, no rash Back: Tenderness to palpation of Left Flank region, Decreased ROM in lower back. Extremities: No tenderness, ROM intact, no edema Neurologic: Alert and oriented X 3, no focal deficits noted Psychologic: Affect normal, judgment normal Current Patient Data: Labs: Laboratory Tests Test 07/24/21 03:47 07/24/21 03:55 White Blood Count 13.2 x10^3/uL (4.0-11.0) H Red Blood Count 4.96 x10^6/uL (3.50-5.40) Hemoglobin 13.1 g/dL (12.0-15.5) Hematocrit 40.0 % (36.0-47.0) Mean Corpuscular Volume 81 fL (79-100) Mean Corpuscular Hemoglobin 27 pg (25-35) Mean Corpuscular Hemoglobin Concent 33 g/dL (31-37) Red Cell Distribution Width 16.4 % (11.5-14.5) H Platelet Count 256 x10^3/uL (140-400) Neutrophils (%) (Auto) 67 % (31-73) Lymphocytes (%) (Auto) 22 % (24-48) L Monocytes (%) (Auto) 10 % (0-9) H Eosinophils (%) (Auto) 1 % (0-3) Basophils (%) (Auto) 1 % (0-3) Neutrophils # (Auto) 8.8 x10^3/uL (1.8-7.7) H Lymphocytes # (Auto) 2.8 x10^3/uL (1.0-4.8) Monocytes # (Auto) 1.3 x10^3/uL (0.0-1.1) H Eosinophils # (Auto) 0.1 x10^3/uL (0.0-0.7) Basophils # (Auto) 0.1 x10^3/uL (0.0-0.2) Sodium Level 138 mmol/L (136-145) Potassium Level 4.0 mmol/L (3.5-5.1) Chloride Level 100 mmol/L (98-107) Carbon Dioxide Level 26 mmol/L (21-32) Anion Gap 12 (6-14) Blood Urea Nitrogen 10 mg/dL (7-20) Creatinine 1.1 mg/dL (0.6-1.0) H Estimated GFR (Cockcroft-Gault) 69.2 BUN/Creatinine Ratio 9 (6-20) Glucose Level 108 mg/dL (70-99) H Calcium Level 9.0 mg/dL (8.5-10.1) Magnesium Level 2.1 mg/dL (1.8-2.4) Total Bilirubin 0.3 mg/dL (0.2-1.0) Aspartate Amino Transferase (AST) 18 U/L (15-37) Alanine Aminotransferase (ALT) 38 U/L (14-59) Alkaline Phosphatase 87 U/L (46-116) Creatine Kinase 125 U/L (26-192) Creatine Kinase MB (Mass) < 0.5 ng/mL (0.0-3.6) Creatine Kinase MB Relative Index % (0-4) Troponin I High Sensitivity 5 ng/L (4-50) Total Protein 8.4 g/dL (6.4-8.2) H Albumin 3.4 g/dL (3.4-5.0) Albumin/Globulin Ratio 0.7 (1.0-1.7) L Lipase 32 U/L (73-393) L Urine Collection Type Unknown Urine Color Yellow Urine Clarity Turbid Urine pH 6.0 (<5.0-8.0) Urine Specific [place] 1.015 (1.000-1.030) Urine Protein >=300 mg/dL (NEG-TRACE) Urine Glucose (UA) Negative mg/dL (NEG) Urine Ketones (Stick) Negative mg/dL (NEG) Urine Blood Large (NEG) Urine Nitrite Positive (NEG) Urine Bilirubin Negative (NEG) Urine Urobilinogen Dipstick 0.2 mg/dL (0.2 mg/dL) Urine Leukocyte Esterase Large (NEG) Urine RBC Occ /HPF (0-2) Urine WBC Tntc /HPF (0-4) Urine Squamous Epithelial Cells Mod /LPF Urine Bacteria Many /HPF (0-FEW) Urine Mucus Mod /LPF Urine Trichomonas Present Urine Test Negative (NEG) Urine Opiates Screen Neg (NEG) Urine Methadone Screen Neg (NEG) Urine Barbiturates Neg (NEG) Urine Phencyclidine Screen Neg (NEG) Urine Amphetamine/Methamphetamine Neg (NEG) Urine Benzodiazepines Screen Neg (NEG) Urine Cocaine Screen Pos (NEG) Urine Cannabinoids Screen Neg (NEG) Urine Ethyl Alcohol Neg (NEG) Laboratory Tests 07/24/21 03:47 Laboratory Tests 07/24/21 03:47 Vital Signs: Vital Signs Date Time Temp Pulse Resp B/P (MAP) Pulse Ox O2 Delivery O2 Flow Rate FiO2 07/24/21 03:25 98.1 109 18 141/85 (103) 98 Room Air 98.1 EKG: EK - 07/24/21 - EKG shows normal sinus rhythm with some baseline abnormalities at a HR of 97 BPM. QRS - 92ms, QT/QTc - 334/428ms Radiology/Procedures: Radiology/Procedures: PROCEDURE: CHEST AP ONLY EXAM: CHEST ONE VIEW. HISTORY: Cough, chest pain. COMPARISON: 07/23/2019. FINDINGS: A frontal view of the chest is obtained. There are no confluent infiltrates. There is no pneumothorax or pleural effusio n. The heart is not enlarged. IMPRESSION: 1. No confluent infiltrates. Electronically signed by: Ta Sanderson MD (07/24/2021 4:24 AM) [facility] PROCEDURE: CT ABDOMEN PELVIS WO CONTRAST EXAM: CT ABDOMEN/PELVIS WITHOUT CONTRAST. HISTORY: Left flank pain. TECHNIQUE: Computed tomography of the abdomen and pelvis was performed without intravenous contrast. One or more of the following individualized dose reduction techniques were utilized for this examination: 1. Automated exposure control. 2. Adjustment of the mA and/or kV according to patient size. 3. Use of iterative reconstruction technique. COMPARISON: 12/31/2019. FINDINGS: Lung windows through the visualized portions of the bases reveal mild atelectasis. Bone windows reveal no suspicious lesions. There are no renal or ureteral calculi. The left proximal ureter is mildly dilated chronically. No cause for obstruction is appreciated. The bladder is not distended. The gallbladder is surgically absent. The liver, adrenal glands and pancreas are unremarkable without contrast. The spleen is at the upper limits of normal size at 13 cm. There are no pathologically enlarged lymph nodes. There is no small bowel obstruction. The appendix is not inflamed. An intrauterine device is in expected position. IMPRESSION: 1. Stable mild left hydroureter proximally. This is chronic. No renal or ureteral calculi. Electronically signed by: Ta Sanderson MD (07/24/2021 5:39 AM) [facility] Course & Med Decision Making: Course & Med Decision Making Pertinent Labs and Imaging studies reviewed. (See chart for details) Patient is a 31 y/o F presenting to the ED with complaints of Back Pain that started on Sunday evening at 5 PM after eating at [employer]. Patient says that the pain is severe and constant and that laying down makes it worse. Nothing has helped relieve the pain but hot packs do seem to help. Due to the patients increase pain and complaints of Chest pain we have ordered an EKG which is grossly normal, as well as a CT Abdomen to look for any underlying structural issues. CT abdomen/pelvis without acute finding. Labs obtained and posted to chart. UA with signs of infection. Urine microscopy also noted to have trichomonas. Empiric antibiotic initiated. Patient stable for discharge with outpatient follow-up with PCP. Discussed findings and plan with patient, who acknowledges understanding and agreement. Anabella Disclaimer: Dragon Disclaimer: This electronic medical record was generated, in whole or in part, using a voice recognition dictation system. Departure Departure Impression: Primary Impression: Pyelonephritis Additional Impression: Trichomonas infection Disposition: HOME / SELF CARE / HOMELESS Condition: STABLE Referrals: Lyn JACOBSON MD (PCP) Patient Instructions: Pyelonephritis, Adult, [id number], Trichomoniasis Additional Instructions: May also use [id number] ibuprofen or naproxen for pain or discomfort. Increase fluid hydration. Scripts Cephalexin (KEFLEX) 500 Mg Capsule 1 CAP PO TID for 7 Days, #21 CAP Prov: HOMA SUAREZ DO 07/24/21 Metronidazole (METRONIDAZOLE) 500 Mg Tablet 1 TAB PO BID for 7 Days, #14 TAB 0 Refills Prov: HOMA SUAREZ DO 07/24/21 Ondansetron (ONDANSETRON ODT) 4 Mg Tab.rapdis 1 TAB PO PRN Q6-8HRS PRN for NAUSEA, #16 TAB Prov: HOMA SUAREZ DO 07/24/21 Hydrocodone Bit/Acetaminophen (HYDROCODONE-APAP 5-325 ) 1 Tab Tablet 0.5-1 TAB PO PRN Q6HRS PRN for PAIN, #10 TAB 0 Refills Prov: HOMA SUAREZ DO 07/24/21 HOMA SUAREZ DO Jul 24, 2021 04:44
[2021-07-24] MEDS ORDERED: cefTRIAXone IV Push 1 GM VIAL. IVP ONE (05:00)
[2021-07-24] MEDS ORDERED: HYDR-2761 PO (05:14)
[2021-07-24] MEDS ORDERED: ONDA4TAB12 PO (05:14)
[2021-07-24] MEDS ORDERED: METR-34 PO (05:16)
[2021-07-24] MEDS ORDERED: CEPH500C PO (05:17)
[2021-07-24] MEDS ORDERED: metroNIDAZOLE 500 MG TABLET PO ONE (05:30)
--- NOTE | 2021-07-24 05:42 | RAD ---
EXAM: CT ABDOMEN/PELVIS WITHOUT CONTRAST. HISTORY: Left flank pain. TECHNIQUE: Computed tomography of the abdomen and pelvis was performed without intravenous contrast. One or more of the following individualized dose reduction techniques were utilized for this examinat ion: 1. Automated exposure control. 2. Adjustment of the mA and/or kV according to patient size. 3. Use of iterative reconstruction technique. COMPARISON: 12/31/2019. FINDINGS: Lung windows through the visualized portions of the bases reveal mild atelectasis. Bone win dows reveal no suspicious lesions. There are no renal or ureteral calculi. The left proximal ureter is mildly dilated chronically. No ca use for obstruction is appreciated. The bladder is not distended. The gallbladder is surgically absent. The liver, adrenal glands and pancreas are unremarkable without contrast. The spleen is at the upper limits of normal size at 13 cm. There are no pathologically enlarged lymph nodes. There is no small bowel obstruction. The appendix i s not inflamed. An intrauterine device is in expected position. IMPRESSION: 1. Stable mild left hydroureter proximally. This is chronic. No renal or ureteral calculi. Electronically signed by: Ta Sanderson MD (07/24/2021 5:39 AM) [facility]
[2021-07-24 06:02] VITALS: BP 115/58
--- NOTE | 2021-07-24 08:16 | EKG ---
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
--- NOTE | 2021-07-24 09:12 | EKG ---
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
--- NOTE | 2021-07-25 16:22 | NUR ---
IP: Attempted to contact pt concerning covid results. Phone number provided is not in service.
== END 2021-07-24 06:08 | disposition home or self-care (01) ==
LOC: ER 03:20
DX: N12 Tubulo-interstitial nephritis, not specified as acute or chronic (principal); Z20.822 Contact with and (suspected) exposure to COVID-19; A59.9 Trichomoniasis, unspecified; I10 Essential (primary) hypertension; J45.909 Unspecified asthma, uncomplicated; F17.200 Nicotine dependence, unspecified, uncomplicated; Z90.49 Acquired absence of other specified parts of digestive tract; Z91.018 Allergy to other foods
CPT/HCPCS: 36415; 71045; 74176; 80053; 80307; 81001; 81025; 82553; 83690; 83735; 84484; 85025; 87077; 87086; 87186; 93005; 96361; 96374; 96375; 99285; J0696; J1885; J3490; J7030; U0003; U0005